=== PATIENT | male | born 1945 | race Caucasian/White ===

== ENCOUNTER 2018-09-13 18:41 | Inpatient (IN) | payer OTHER ==
[2018-09-13] MEDS ORDERED: THIAMINE 200 MG/2 ML INJ ONE (19:40)
[2018-09-13] MEDS ORDERED: ONDANSETRON 4 MG/2 ML VIAL ONE (19:40)
[2018-09-13] MEDS ORDERED: NA CHLORIDE 0.9% 2,000 ML ONE (19:40)
[2018-09-13 19:48] LABS: Absolute Lymphocytes (CBC) 0.4 K/uL (0.7-4.9); Absolute Monocytes 0.1 K/uL (0.1-1.3); Absolute Neutrophil 10.9 K/uL (1.8-8.0); Basophils % 0.2 % (0-1.3); Eosinophils % 0.1 % (0-4.4); Hematocrit 47.8 % (39.6-49.0); Lymphocytes % 3.7 % (15.3-44.8); MPV 10.1 fL (7.6-11.3); Monocytes % 0.9 % (3.3-12.3); RBC Red Blood Cell Count 5.19 M/uL (4.33-5.43)
--- NOTE | 2018-09-13 19:52 | RAD REPORT ---
EXAM DESCRIPTION: CT - Head Brain Wo Cont - 09/13/2018 7:40 pm CLINICAL HISTORY: Transient alteration of awareness COMPARISON: None. TECHNIQUE: Axial 5 mm thick images of the head were obtained without IV contrast. All CT scans are performed using dose optimization technique as appropriate and may include automated exposure control or mA/KV adjustment according to patient size. FINDINGS: No intracranial hemorrhage, mass, edema or shift of mid-line structures. No acute infarcti on changes seen. Moderate atrophy and chronic ischemic change. Ventricles are in proportion. Arterial and physiologic calcifications present. Mastoid air cells and visualized portions of the paranasal sinuses are clear. No acute bony findings. IMPRESSION: Moderate atrophy and chronic ischemic change. No acute findings seen. Chronic ischemic changes can mask nonhemorrhagic acute infarction. MR brain followup can be obtained if there is ongoing concern for acute ischemia.
--- NOTE | 2018-09-13 19:55 | RAD REPORT ---
EXAM DESCRIPTION: CT - Stone Protocol - 09/13/2018 7:44 pm CLINICAL HISTORY: Abdominal pain, fever COMPARISON: None. TECHNIQUE: Axial 5 mm thick images were obtained without oral or IV contrast. The [id number] span s the entirety of the system partially obscuring uppermost abdomen and lung bases. All CT scans are performed using dose optimization technique as appropriate and may include automated exposure control or mA/KV adjustment according to patient size. FINDINGS: No hydronephrosis is present and no obstructing ureteral calculi. No suspicious renal mass es. Isodense masses and pyelonephritis are not excluded on a stone protocol CT scan. No urinary bladd er wall thickening. Lobulated contour is seen along the trigone of the bladder. This could be prostat ic hypertrophy, prostate mass or even bladder mass. No significant adrenal finding. Imaged portions of the liver, spleen and pancreas show no suspicious findings on non-contrast imaging . Fatty infiltration of the liver is present. No gallbladder or biliary tree finding. Gallstones can be occult. Acute gallbladder process is not suspected. No suspicious bowel findings. Appendix is normal. No active GI process seen. Diverticulosis is minima l. No hernia, mass or bulky lymphadenopathy noted. No free air, free fluid or inflammatory stranding. No significant bony abnormality. IMPRESSION: No acute GI process identifiable. No free air or surgically emergent finding. No hydronephrosis or obstructing calculus. Isodense masses and pyelonephritis are not excluded. No ur inary bladder wall thickening. Approximately 2.5 centimeter mass density at the trigone of the bladder could be bladder mass, prosta te mass or part of prostatic hypertrophy.
[2018-09-13 19:57] LABS: Protime INR 1.15
[2018-09-13 20:17] LABS: Albumin 3.8 g/dL (3.4-5.0); Bilirubin Direct 0.5 mg/dL (0-0.2); Bilirubin Total 1.6 mg/dL (0.2-1.0); Magnesium 1.8 mg/dL (1.8-2.4); Potassium 3.5 mmol/L (3.5-5.1); Protein, Total 7.7 g/dL (6.4-8.2); Troponin (Emerg Dept Use Only) 0.33 ng/mL (0.0-0.045)
[2018-09-13 20:18] LABS: Blood Morphology Comment NOT SEEN (NOT SEEN); Platelet Estimate ADEQ; Urine White Blood Cell Casts OK
[2018-09-13] MEDS ORDERED: ACETAMINOPHEN 325 MG TABLET ONE (20:38)
[2018-09-13] MEDS ORDERED: CEFEPIME 1 GM/100 ML BAG IV ONE (20:38)
[2018-09-13 20:43] LABS: Urine Blood 1+ (NEG); Urine Glucose NEGATIVE (NEG); Urine Protein 2+ (NEG)
--- NOTE | 2018-09-13 21:05 | RAD REPORT ---
EXAM DESCRIPTION: RAD - Chest Single View - 09/13/2018 7:52 pm CLINICAL HISTORY: Cough and congestion COMPARISON: None. TECHNIQUE: AP portable chest image was obtained 1949 hours . FINDINGS: Lungs are clear. Heart and vasculature are normal. No measurable pleural effusion and no p neumothorax. No acute bony abnormality seen. No acute aortic findings suspected. IMPRESSION: No acute cardiopulmonary process.
--- NOTE | 2018-09-13 22:23 | ER ---
Nurse's Notes [facility] Name: Tejas Kulkarni Age: 72 yrs Sex: Male : 1945 Arrival Date: 09/13/2018 Time: 18:49 Bed 26 Private MD: Diagnosis: Tubulo-interstitial nephritis, not specified as acute or chronic;Severe sepsis without septic shock Presentation: 09/13 18:47 Presenting complaint: EMS states: called by pt's daughter who stated that the pt is sv disoriented. BP 150/108 HR-110 ST, BS-211, A\T\O x2 person/place, GCS-15. c/o dizziness and nausea. Denies chest pain/abd pain/headache. BP now 143/105 HR-110 92% RA O2 \T\ 2L per NC O2 sat up to 95%, Temp on arrival 103 and now is 101.9. EMS stated pt was diaphoretic on arrival and temperature in his house was hot. Transition of care: patient was not received from another setting of care. Onset of symptoms was September 13, 2018. Risk Assessment: Do you want to hurt yourself or someone else? Patient reports no desire to harm self or others. Initial Sepsis Screen: Does the patient meet any 2 criteria? Altered Mental Status. HR > 90 bpm. Yes Does the patient have a suspected source of infection? No. Patient's initial sepsis screen is negative. Care prior to arrival: IV initiated. 20 GA, in the left antecubital area, Glucose check: 211. 18:47 Method Of Arrival: EMS: [facility] sv 18:47 Acuity: REAGAN 2 sv Triage Assessment: 19:00 General: Appears in no apparent distress. comfortable, unkempt, well developed, sv Behavior is cooperative, restless. Pain: Denies pain. Neuro: Level of Consciousness is awake, alert, obeys commands, confused, Oriented to person, place, Moves all extremities. Full function Gait is unsteady. Neuro: Reports dizziness. Respiratory: Airway is patent Respiratory effort is even, unlabored, Respiratory pattern is regular, symmetrical. Derm: Skin is normal. Historical: - Allergies: 19:07 Iodine; sv 19:07 shrimp; sv - Home Meds: 19:14 Hydralazine Oral [Active]; Cyclobenzaprine Oral [Active]; meloxicam oral oral [Active]; sv atorvastatin oral oral [Active]; Glipizide Oral [Active]; valsartan oral oral [Active]; - PMHx: 19:07 Diabetes - NIDDM; Hypertension; sv - Immunization history:: Flu vaccine is not up to date. - Social history:: Smoking status: Patient/guardian denies using tobacco. - Ebola Screening: : No symptoms or risks identified at this time. Screenin:20 Abuse screen: Denies threats or abuse. Denies injuries from another. Nutritional ca1 screening: No deficits noted. Tuberculosis screening: No symptoms or risk factors identified. Fall Risk IV access (20 points). Assessment: 19:20 General: Appears in no apparent distress. comfortable, Behavior is calm, cooperative, ca1 appropriate for age. Pain: Denies pain. Neuro: Level of Consciousness is awake, alert, obeys commands, Oriented to person, place, situation, Roto [employer] Press Operator are equal bilaterally Moves all extremities. Gait is steady, Speech is normal, Facial symmetry appears normal, Pupils are PERRLA. Cardiovascular: Heart tones S1 S2 present Capillary refill < 3 seconds Patient's skin is warm and dry. Rhythm is sinus rhythm. Respiratory: Airway is patent Respiratory effort is even, unlabored, Respiratory pattern is regular, symmetrical, Breath sounds are clear bilaterally. GI: Abdomen is round non-distended, Bowel sounds present X 4 quads. Abd is soft and non tender X 4 quads. : Urine is cloudy. EENT: No deficits noted. No signs and/or symptoms were reported regarding the EENT system. Derm: Skin is intact, is healthy with good turgor, Skin is pink, warm \T\ dry. Musculoskeletal: Circulation, motion, and sensation intact. Capillary refill < 3 seconds. 20:25 Reassessment: Patient appears in no apparent distress at this time. Patient and/or ca1 family updated on plan of care and expected duration. Pain level reassessed. Patient is alert, oriented x 3, equal unlabored respirations, skin warm/dry/pink. Vital Signs: 19:00 BP 149 / 102; Pulse 113; Resp 18; Temp 100.8(O); Pulse Ox 96% on R/A; Pain 0/10; sv 20:22 Weight 93.89 kg (R); mg2 20:25 BP 121 / 88; Pulse 98; Resp 19 S; Pulse Ox 99% on R/A; ca1 20:25 Temp 99.4(O); jp3 22:05 Temp 98.7(O); jp3 ED Course: 18:47 Maintain EMS IV. Dressing intact. Site clean \T\ dry. Gauge \T\ site: 20G L AC. sv 18:49 Patient arrived in ED. em 18:50 Jelly Bingham, RN is Primary Nurse. sv 19:00 Arm band placed on. sv 19:00 Patient has correct armband on for positive identification. Bed in low position. Side sv rails up X2. monitoring engineer on. Pulse ox on. NIBP on. Head of bed elevated. 19:05 Report received from María SHARP and Sharyn RN. sv 19:06 Triage completed. sv 19:15 Yeison Morgan MD is Attending Physician. gs 19:21 Primary Nurse role handed off by Jelly Bingham RN sv 19:25 Initial lab(s) drawn, by tn, sent to lab. ca1 19:25 First set of blood cultures drawn by tn. ca1 19:34 Eli Smith, RN is Primary Nurse. ca1 19:40 CT Head Brain wo Cont In Process Unspecified. EDMS 19:40 Second set of blood cultures drawn by tn. ca1 19:43 CT Stone Protocol In Process Unspecified. EDMS 19:44 CT completed. Patient tolerated procedure well. Patient moved back from CT. mw3 19:53 XRAY Chest (1 view) In Process Unspecified. EDMS 20:19 Notified ED physician of a critical lab result(s). lactate of 3.1. Dr Morgan notified. bb 22:18 Urine Microscopic Only Sent. jp3 22:21 Corinne Baxter MD is Hospitalizing Provider. gs 23:10 No provider procedures requiring assistance completed. Patient admitted, IV remains in mg2 place. Administered Medications: 19:55 Drug: Thiamine 100 mg Route: IV; Rate: bolus; Site: left antecubital; mg2 20:55 Follow up: Response: No adverse reaction; IV Status: Completed infusion ca1 19:55 Drug: NS 0.9% 1000 ml Route: IV; Rate: 1 bolus; Site: left antecubital; mg2 23:09 Follow up: Response: No adverse reaction; IV Status: Completed infusion mg2 19:55 Drug: Zofran 4 mg Route: IVP; Site: left antecubital; mg2 20:50 Follow up: Response: No adverse reaction; Nausea is decreased ca1 20:35 Drug: NS 0.9% 1000 ml Route: IV; Rate: 1 bolus; Site: right antecubital; ca1 23:09 Follow up: Response: No adverse reaction; IV Status: Completed infusion mg2 20:39 Drug: Cefepime 1 grams Route: IVPB; Rate: 200 ml/hr; Infused Over: 30 mins; Site: left mg2 antecubital; 23:08 Follow up: Response: No adverse reaction; IV Status: Completed infusion mg2 23:08 Not Given (Physician Discretion): NS 0.9% 1000 ml IV at 125 ml/hr continuous mg2 23:09 Not Given (patient afebrile): Tylenol 650 mg PO once mg2 Intake: 22:00 IV: 2000ml; Total: 2000ml. jp3 22:00 bladder scan was performed after patient voided. Urine retention was 152ml jp3 Output: 22:00 Urine: 200ml (Voided); Total: 200ml. jp3 22:00 bladder scan was performed after patient voided. Urine retention was 152ml jp3 Outcome: 22:22 Decision to Hospitalize by Provider. 23:11 Admitted to Tele accompanied by tech, via wheelchair, room 415, with chart, Report mg2 called to LILA Kurtz 23:11 Condition: stable 23:11 Instructed on the need for admit, Demonstrated understanding of instructions. 23:18 Patient left the ED. mg2 Signatures: Dispatcher [employer] Jelly Simpson RN RN Pernell Moss, DIAPER FOLDER DIAPER FOLDER Vero Starr RN RN bb Starr, Gregory, MD MD Alon Alarcon RN RN mg2 Cori Carter 3 Marc Del Rosario jp3 Eli Smith RN RN ca1 Corrections: (The following items were deleted from the chart) 20:23 20:22 93.89 kg; mg2 mg2 22:18 20:25 Temp 99.4F; mg2 jp3
--- NOTE | 2018-09-13 22:23 | EDPHYS ---
Physician Documentation [facility] Name: Tejas Kulkarni Age: 72 yrs Sex: Male : 1945 Arrival Date: 09/13/2018 Time: 18:49 Bed 26 Private MD: ED Physician Yeison Morgan HPI: 09/13 22:15 This 72 yrs old Male presents to ER via EMS with complaints of Dizziness, gs Altered Mental Status. 22:15 Onset: The symptoms/episode began/occurred acutely, this morning. Modifying factors: gs there are no obvious modifying factors. Associated signs and symptoms: Pertinent positives: altered mental status,\E\ backache, chills, decreased appetite. Severity of symptoms: At their worst the symptoms were severe in the emergency department the symptoms are unchanged. The patient has not experienced similar symptoms in the past. Historical: - Allergies: 19:07 Iodine; sv 19:07 shrimp; sv - Home Meds: 19:14 Hydralazine Oral [Active]; Cyclobenzaprine Oral [Active]; meloxicam oral oral [Active]; sv atorvastatin oral oral [Active]; Glipizide Oral [Active]; valsartan oral oral [Active]; - PMHx: 19:07 Diabetes - NIDDM; Hypertension; sv - Immunization history:: Flu vaccine is not up to date. - Social history:: Smoking status: Patient/guardian denies using tobacco. - Ebola Screening: : No symptoms or risks identified at this time. ROS: 22:15 All other systems are negative. gs Exam: 22:15 Head/Face: Normocephalic, atraumatic. Eyes: Pupils equal round and reactive to light, gs extra-ocular motions intact. Lids and lashes normal. Conjunctiva and sclera are non-icteric and not injected. Cornea within normal limits. Periorbital areas with no swelling, redness, or edema. ENT: Nares patent. No nasal discharge, no septal abnormalities noted. Tympanic membranes are normal and external auditory canals are clear. Oropharynx with no redness, swelling, or masses, exudates, or evidence of obstruction, uvula midline. Mucous membranes moist. Neck: Trachea midline, no thyromegaly or masses palpated, and no cervical lymphadenopathy. Supple, full range of motion without nuchal rigidity, or vertebral point tenderness. No Meningismus. Chest/axilla: Normal chest wall appearance and motion. Nontender with no deformity. No lesions are appreciated. 22:15 Respiratory: Lungs have equal breath sounds bilaterally, clear to auscultation and percussion. No rales, rhonchi or wheezes noted. No increased work of breathing, no retractions or nasal flaring. Back: No spinal tenderness. No costovertebral tenderness. Full range of motion. Skin: Warm, dry with normal turgor. Normal color with no rashes, no lesions, and no evidence of cellulitis. MS/ Extremity: Pulses equal, no cyanosis. Neurovascular intact. Full, normal range of motion. 22:15 Constitutional: The patient appears awake. 22:15 Cardiovascular: Rate: tachycardic, Rhythm: regular, Pulses: no pulse deficits are appreciated. 22:15 Abdomen/GI: Inspection: abdomen appears normal, Palpation: moderate abdominal tenderness, in all quadrants, rebound tenderness, is not appreciated. 22:15 Neuro: Orientation: Not oriented to place, time, situation. Vital Signs: 19:00 BP 149 / 102; Pulse 113; Resp 18; Temp 100.8(O); Pulse Ox 96% on R/A; Pain 0/10; sv 20:22 Weight 93.89 kg (R); mg2 20:25 BP 121 / 88; Pulse 98; Resp 19 S; Pulse Ox 99% on R/A; ca1 20:25 Temp 99.4(O); jp3 22:05 Temp 98.7(O); jp3 MDM: 19:15 Patient medically screened. gs 22:15 Differential diagnosis: viral Infection, bacterial infection, pneumonia UTI. Data gs reviewed: vital signs, nurses notes, lab test result(s), EKG, radiologic studies. Response to treatment: the patient's symptoms have markedly improved after treatment, and as a result, I will admit patient. 09/13 19:03 Order name: Basic Metabolic Panel [facility] 09/13 19: Order name: CBC with Diff [facility] 09/13 19:03 Order name: LFT's [facility] 09/13 19: Order name: Magnesium; Complete Time: 20:19 [facility] 09/13 19:03 Order name: NT PRO-BNP; Complete Time: 20:19 [facility] 09/13 19:03 Order name: PT-INR; Complete Time: 20:19 [facility] 04 19:03 Order name: Troponin (emerg Dept Use Only); Complete Time: 20:19 [facility] 09/13 19:03 Order name: Lipase; Complete Time: 20:19 [facility] 09/13 19:03 Order name: Urine Culture [facility] 09/13 19:03 Order name: AMMONIA; Complete Time: 20:19 [facility] 09/13 19:04 Order name: Basic Metabolic Panel; Complete Time: 20:19 [facility] 09/13 19:04 Order name: CBC with Automated Diff; Complete Time: 20:19 [facility] 09/13 19:04 Order name: Liver (Hepatic) Function; Complete Time: 20:19 [facility] 09/13 19:17 Order name: Blood Culture* 09/13 19:03 Order name: XRAY Chest (1 view); Complete Time: 21:08 [facility] 09/13 19:03 Order name: CT Head Brain wo Cont; Complete Time: 20:19 [facility] 09/13 19:17 Order name: Lactate; Complete Time: 21:08 09/13 19:17 Order name: Procalcitonin; Complete Time: 21:08 09/13 19:19 Order name: CT Stone Protocol; Complete Time: 20:19 09/13 19:56 Order name: CBC Smear Scan; Complete Time: 20:19 [facility] 09/13 19:57 Order name: Urine Dipstick--Ancillary (enter results); Complete Time: 21:08 cm6 09/13 19:58 Order name: Urine Microscopic Only 6 09/13 20:05 Order name: Glucose, Ancillary Testing; Complete Time: 20:19 [facility] 09/13 22:14 Order name: Lactate 09/13 23:10 Order name: Lactate Sepsis 2 HR Follow-up [facility] 09/13 19:03 Order name: EKG; Complete Time: 19:04 [facility] 09/13 19:03 Order name: Cardiac monitoring; Complete Time: 19:31 [facility] 09/13 19:03 Order name: EKG - Nurse/Tech; Complete Time: 20:23 [facility] 09/13 19:03 Order name: IV Saline Lock; Complete Time: 19:31 [facility] 09/13 19:03 Order name: Labs collected and sent; Complete Time: 19:31 [facility] 09/13 19:03 Order name: O2 Per Protocol; Complete Time: 19:31 [facility] 09/13 19:03 Order name: O2 Sat Monitoring; Complete Time: 19: [facility] 09/13 19:03 Order name: Urine Dipstick-Ancillary (obtain specimen); Complete Time: 20: [facility] 09/13 19:03 Order name: Blood Glucose Level; Complete Time: 20:05 [facility] Administered Medications: 19:55 Drug: Thiamine 100 mg Route: IV; Rate: bolus; Site: left antecubital; mg2 20:55 Follow up: Response: No adverse reaction; IV Status: Completed infusion ca1 19:55 Drug: NS 0.9% 1000 ml Route: IV; Rate: 1 bolus; Site: left antecubital; mg2 23:09 Follow up: Response: No adverse reaction; IV Status: Completed infusion mg2 19:55 Drug: Zofran 4 mg Route: IVP; Site: left antecubital; mg2 20:50 Follow up: Response: No adverse reaction; Nausea is decreased ca1 20:35 Drug: NS 0.9% 1000 ml Route: IV; Rate: 1 bolus; Site: right antecubital; ca1 23:09 Follow up: Response: No adverse reaction; IV Status: Completed infusion mg2 20:39 Drug: Cefepime 1 grams Route: IVPB; Rate: 200 ml/hr; Infused Over: 30 mins; Site: left mg2 antecubital; 23:08 Follow up: Response: No adverse reaction; IV Status: Completed infusion mg2 23:08 Not Given (Physician Discretion): NS 0.9% 1000 ml IV at 125 ml/hr continuous mg2 23:09 Not Given (patient afebrile): Tylenol 650 mg PO once mg2 Disposition: 09/13/18 22:22 Hospitalization ordered by Corinne Baxter for Inpatient Admission. Preliminary diagnosis are Tubulo-interstitial nephritis, not specified as acute or chronic, Severe sepsis without septic shock. - Bed requested for Telemetry/MedSurg (Inpatient). - Status is Inpatient Admission. mg2 - Condition is Stable. - Problem is new. - Symptoms have improved. UTI on Admission? Yes Critical care time excluding procedures: 22:15 Critical care time: Bedside Care: 10 minutes, Consultation: 10 minutes, Family gs Intervention: 10 minutes. Total time: 30 minutes Signatures: Dispatcher [employer] Jelly Simpson RN RN sv Anderson, Corey, MD MD cha Garcia, Cindy, RN RN Yeison Morgan MD MD Alon Alarcon RN RN mg2 Eli Smith RN RN ca1 Corrections: (The following items were deleted from the chart) 22:42 22:22 Hospitalization Ordered by Corinne Baxter MD for Inpatient Admission. Preliminary cg diagnosis is Tubulo-interstitial nephritis, not specified as acute or chronic; Severe sepsis without septic shock. Bed requested for Telemetry/MedSurg (Inpatient). Status is Inpatient Admission. Condition is Stable. Problem is new. Symptoms have improved. UTI on Admission? Yes. 23:18 22:42 09/13/2018 22:22 Hospitalization Ordered by Corinne Baxter MD for Inpatient mg2 Admission. Preliminary diagnosis is Tubulo-interstitial nephritis, not specified as acute or chronic; Severe sepsis without septic shock. Bed requested for Telemetry/MedSurg (Inpatient). Status is Inpatient Admission. Condition is Stable. Problem is new. Symptoms have improved. UTI on Admission? Yes.
[2018-09-13 23:28] LABS: Urine Bacteria >50 /HPF (NONE SEEN); Urine Culture Reflex Order NOT NEEDED; Urine RBC <5 /HPF (NONE SEEN)
[2018-09-13] MEDS ORDERED: ONDANSETRON 4 MG/2 ML VIAL IV PRN (23:29)
[2018-09-13] MEDS ORDERED: NA CHLORIDE 0.9% 1,000 ML IV SCH (23:29)
--- NOTE | 2018-09-14 04:50 | P.HP ---
Certification for Inpatient Patient admitted to: Inpatient With expected LOS: >2 Midnights Practitioner: I am a practitioner with admitting privileges, knowledge of patient current condition, hospital course, and medical plan of care. Services: Services provided to patient in accordance with Admission requirements found in Title 42 Section 412.3 of the Code of Federal Regulations Patient History Date of Service: 09/13/18 Reason for admission: sepsis, UTI History of Present Illness: Mr Kulkarni is a 89 years old male with history of DM II, HTN, who start a couple of days ago with urinary retention. He states that is not the first time , and he usually do well drinking Apple cyder vinegar. However, his symptoms did not improve. Today the patient was more confused and disoriented. His BP was elevated. EMS was called, when they arrive, the patient was febrile 103.0F, and diaphoretic. At arrival to ED he was still febrile 100.8F. After, fever resolved, his mentation came back to his normal baseline. Lab work remarkable for leukocytosis 11.5K, elevated procalcitonin and lactate. UA abnormal consistent with UTI. CT abd/pelvis shows no acute abnormalities, but was reported an approximately 2.5 centimeter mass density at the trigone of the bladder, could be bladder mass, prostate mass or part of prostatic hypertrophy. Allergies iodine Allergy (Verified 09/13/18 23:54) Rash shrimp Allergy (Verified 09/13/18 23:54) Hives/Rash Home medications list reviewed: Yes Home Medications: NK [No Home Meds] 09/13/18 - Past Medical/Surgical History Has patient received pneumonia vaccine in the past: No Diabetic: Yes -: diabetes -: hypertension Past Surgical History: Reviewed- Non-Contributory - Family History Father -: Lung disease, Cancer - Social History Smoking Status: Former smoker Alcohol use: No CD- Drugs: No Caffeine use: No Place of Residence: Home Review of Systems 10-point ROS is otherwise unremarkable Physical Examination - Vital Signs Temperature: 99.8 F Blood Pressure: 116/65 Pulse: 81 Respirations: 16 Pulse Ox (%): 97 - Physical Exam General: Alert, In no apparent distress HEENT: Atraumatic, PERRLA, Mucous membr. moist/pink, EOMI, Sclerae nonicteric Neck: Supple, 2+ carotid pulse no bruit, No LAD, Without JVD or thyroid abnormality Respiratory: Clear to auscultation bilaterally, Normal air movement Cardiovascular: Regular rate/rhythm, Normal S1 S2 Gastrointestinal: Normal bowel sounds, No tenderness Musculoskeletal: No tenderness Integumentary: No rashes Neurological: Normal speech, Normal strength at 5/5 x4 extr, Normal tone, Normal affect Lymphatics: No axilla or inguinal lymphadenopathy - Studies Laboratory Data (last 24 hrs) 09/13/18 19:25: PT 13.5 H, INR 1.15 09/13/18 19:25: WBC 11.5 H, Hgb 16.5, Hct 47.8, Plt Count 206 09/13/18 19:25: Sodium 135 L, Potassium 3.5, BUN 14, Creatinine 1.27, Glucose 185 H, Magnesium 1.8, Total Bilirubin 1.6 H, AST 22, ALT 47, Alkaline Phosphatase 105, Lipase 88 Assessment and Plan - Problems (Diagnosis) (1) Sepsis Current Visit: Yes Status: Acute Qualifiers: Sepsis type: sepsis due to unspecified organism Qualified Code(s): A41.9 - Sepsis, unspecified organism (2) UTI (urinary tract infection) Current Visit: Yes Status: Acute Qualifiers: Urinary tract infection type: acute cystitis Hematuria presence: without hematuria Qualified Code(s): N30.00 - Acute cystitis without hematuria (3) Diabetes mellitus Current Visit: Yes Status: Acute Qualifiers: Diabetes mellitus type: type 2 Diabetes mellitus longterm insulin use: without longterm use Diabetes mellitus complication status: with unspecified complications Qualified Code(s): E11.8 - Type 2 diabetes mellitus with unspecified complications (4) HTN (hypertension) Current Visit: Yes Status: Acute Qualifiers: Hypertension type: essential hypertension Qualified Code(s): I10 - Essential (primary) hypertension - Plan Will admit the patient due to sepsis secondary to UTI. Will continue IV fluids, IV antibiotics, blood and urine culture in process. The patient feels better already, he is hemodynamically stable. Will consult Dr Diaz to evaluate bladder mass, this might play a roll on his current illness. - Advance Directives Does patient have a Living Will: No Does patient have a Durable POA for Healthcare: No - Code Status/Comfort Care Code Status Assessed: Yes Code Status: Full Code
[2018-09-14] MEDS: ACETAMINOPHEN 500 MG TAB PO PRN ×4 (05:11→22:13)
[2018-09-14 06:19] LABS: Absolute Lymphocytes (CBC) 0.3 K/uL (0.7-4.9); Absolute Monocytes 0.8 K/uL (0.1-1.3); Absolute Neutrophil 12.7 K/uL (1.8-8.0); Basophils % 0.3 % (0-1.3); Eosinophils % 0.1 % (0-4.4); Hematocrit 40.5 % (39.6-49.0); Lymphocytes % 2.3 % (15.3-44.8); Monocytes % 5.7 % (3.3-12.3)
[2018-09-14] MEDS ORDERED: D50W 25 GM/50 ML SYRINGE IV PRN (07:30)
[2018-09-14] MEDS ORDERED: GLUCAGON 1 MG/VIAL IM PRN (07:30)
[2018-09-14] MEDS: INSULIN -REGULAR HUMAN 50 UNIT/0.5 ML ML SQ SCH ×4 (07:30→21:00)
--- NOTE | 2018-09-14 08:14 | P.PN ---
Subjective Date of Service: 09/14/18 Primary Care Provider: [place] [facility] Chief Complaint: sepsis, UTI Subjective: Other (Patient doing better this morning. T-max 101.7) Physical Examination - Vital Signs Temperature: 101.4 F Blood Pressure: 108/55 Pulse: 84 Respirations: 16 Pulse Ox (%): 95 - Physical Exam General: Alert, In no apparent distress, Oriented x3, Cooperative HEENT: Atraumatic Neck: Supple Respiratory: Clear to auscultation bilaterally, Normal air movement Cardiovascular: Normal pulses, Regular rate/rhythm Gastrointestinal: Normal bowel sounds, Soft and benign, Non-distended, No tenderness, No masses, No rebound, No guarding Musculoskeletal: No erythema, No tenderness, No warmth Neurological: Normal speech, Normal strength at 5/5 x4 extr, Normal tone, Normal affect - Studies Laboratory Data (last 24 hrs) 09/13/18 19:25: PT 13.5 H, INR 1.15 09/13/18 19:25: WBC 11.5 H, Hgb 16.5, Hct 47.8, Plt Count 206 09/13/18 19:25: Sodium 135 L, Potassium 3.5, BUN 14, Creatinine 1.27, Glucose 185 H, Magnesium 1.8, Total Bilirubin 1.6 H, AST 22, ALT 47, Alkaline Phosphatase 105, Lipase 88 Medications List Reviewed: Yes Assessment & Plan Discharge Plan: Home Plan to discharge in: Greater than 2 days Physician Review Additional Text: Impression: Sepsis secondary to UTI with reports of her you nerve retention, with CT scan showing 2.5 cm mass density at the trigone of the bladder likely BPH Acute renal injury secondary to Dehydration Elevated troponin likely related to sepsis Diabetes mellitus type 2 Hypertension Obesity, BMI 31 Plan: Sepsis secondary to UTI with reports of urinary retention, with CT scan showing 2.5 cm mass density at the trigone of the bladder likely BPH: Will continue with IV Rocephin. Will increase IV fluids. Patient able to urinate on his own. No Tapia catheter in place. Will provide medication for fever. Patient remains on DVT prophylaxis-Lovenox. Urology suspects density likely BPH. No need for intervention at this time. Will need to monitor for urinary retention. Will start Flomax at bedtime. Continue to monitor closely. Blood and urine cultures obtained. Anticipate discharge in the next 48-72 hr. I will turn the service over tomorrow to the hospitalist team. I will go over the plan of care with him. Acute renal injury secondary to Dehydration: Continue aggressive IV fluid hydration. Will increase IV fluids. Will monitor and adjust appropriately. Elevated troponin likely related to sepsis: Will recheck troponin. Will obtain echocardiogram. Will monitor closely. Will start aspirin. Diabetes mellitus type 2: Continue Accu-Cheks and sliding scale. Will check A1c. Hypertension: Will need to obtain home medication. No need for medication at this time. Will monitor closely. Obesity, BMI 31: Will address lifestyle modification education. Time Spent Managing Pts Care (In Minutes): 55
[2018-09-14] MEDS ORDERED: CEFTRIAXONE 1 GM/NS 50 ML 1 GM/50 ML BAG IV SCH (09:00)
[2018-09-14] MEDS ORDERED: MAGNESIUM SULFATE 1 gm IVPB 1 GM/100 ML BAG IV ONE (09:00)
[2018-09-14] MEDS: CEFTRIAXONE/SWI 1gm 1 GM/10 ML SYR IVP SCH (09:00)
[2018-09-14] MEDS: FAMOTIDINE 20 MG TAB PO SCH (09:05)
[2018-09-14] MEDS: ASPIRIN EC 81 MG TAB PO SCH (09:05)
[2018-09-14] MEDS: ENOXAPARIN 40 MG/0.4 ML SQ SCH (09:10)
[2018-09-14] MEDS: NA CHLORIDE 0.9% 1,000 ML IV SCH ×2 (09:12→16:38)
[2018-09-14] MEDS: CETIRIZINE HCL 5 MG TABLET PO SCH (14:05)
[2018-09-14] MEDS: FLUTICASONE 50MCG NASAL SPRAY NAS SCH ×2 (15:00→20:45)
--- NOTE | 2018-09-14 16:49 | CON ---
Mr. Kulkarni has been aware he has had a urinary tract infection. He tried to treat it by taking juic es and supplements and drinking lots of water. He thought it went away and his daughter noticed he w as confused, almost incoherent. His son-in-law dropped by took his blood pressure and noted his bloo d pressure is elevated. They called an ambulance. He has been found to have urinary tract septicemi a. His urine is growing gram-negative rods and he has an elevated procalcitonin. In addition to tho se 2 things, troponin levels were drawn. The patient has an EKG that is normal except for having 1 p remature atrial complex and nothing on telemetry, was not having chest pain or anything that could be remotely ischemic heart disease that he had troponins drawn and they were abnormal. Firs t troponin was 0.33, the second one 0.94. Physical Examination: General: He is alert, oriented, no longer confused, a little bit angry. He was saying some mildly d erogatory things about medicines that other doctors had prescribed him and seemed to be saying he had made his other doctors angry by not taking medicines they had prescribed. He gets most of his care at the [facility]. Uses no tobacco. Lungs: Clear. Heart: Normal. Abdomen: Soft. Extremities: Normal. EKG normal except for PAC. We have abnormal troponin. The right thing to do is get an echo. We do not see anything wrong with segmental wall motion. No EKG changes. No chest pain. We can assume this is not an acute coronary syndrome. TESSA Voice ID: [id number] Report ID: [id number]
[2018-09-14] MEDS ORDERED: TAMSULOSIN 0.4 MG SR CAP PO SCH (21:00)
[2018-09-15] MEDS: NA CHLORIDE 0.9% 1,000 ML IV SCH ×2 (00:36→08:51)
[2018-09-15 06:33] LABS: Magnesium 2.2 mg/dL (1.8-2.4); Potassium 4.2 mmol/L (3.5-5.1)
[2018-09-15 06:59] LABS: Absolute Lymphocytes (CBC) 0.5 K/uL (0.7-4.9); Absolute Monocytes 0.5 K/uL (0.1-1.3); Absolute Neutrophil 7.3 K/uL (1.8-8.0); Basophils % 0.3 % (0-1.3); Lymphocytes % 6.1 % (15.3-44.8); MPV 10.6 fL (7.6-11.3); Monocytes % 6.1 % (3.3-12.3); RBC Red Blood Cell Count 4.18 M/uL (4.33-5.43)
[2018-09-15] MEDS: INSULIN -REGULAR HUMAN 50 UNIT/0.5 ML ML SQ SCH ×2 (07:30→11:30)
[2018-09-15] MEDS: CETIRIZINE HCL 5 MG TABLET PO SCH (08:16)
[2018-09-15] MEDS: FAMOTIDINE 20 MG TAB PO SCH (08:16)
[2018-09-15] MEDS: ENOXAPARIN 40 MG/0.4 ML SQ SCH (08:16)
[2018-09-15] MEDS: FLUTICASONE 50MCG NASAL SPRAY NAS SCH (08:16)
[2018-09-15] MEDS: ASPIRIN EC 81 MG TAB PO SCH (08:16)
[2018-09-15] MEDS: CEFTRIAXONE/SWI 1gm 1 GM/10 ML SYR IVP SCH (08:17)
--- NOTE | 2018-09-15 12:36 | PN ---
He remains asymptomatic with respect to his heart. His septicemia is markedly improved with antibiot ics. An echo today will be a decision point in helping us decide how much of the workup to do. If i t is completely normal, I would stop the workup there. If there is a segmental wall motion abnormali ty, I will discuss with him the need for cardiac cath. TESSA Voice ID: [id number] Report ID: [id number]
--- NOTE | 2018-09-15 16:14 | ECHO ---
HEIGHT: 5 ft 8 in WEIGHT: 204 lb 0 oz DATE OF STUDY: 09/15/[address]: Venkatesh Barker DO 2-DIMENSIONAL: YES M.MODE: YES DOPPLER: YES COLOR FLOW: YES TDS: PORTABLE: DEFINITY: BUBBLE STUDY: DIAGNOSIS: ELEVATED TROPONIN CARDIAC HISTORY: CATHERIZATION: NO SURGERY: NO PROSTHETIC VALVE: NO PACEMAKER: NO MEASUREMENTS (cm) DIASTOLIC (NORMALS) SYSTOLIC (NORMALS) IVSd 1.3 (0.6-1.2) LA Diam 3.4 (1.9-4.0) LVEF 77% LVIDd 4.0 (3.5-5.7) LVIDs 2.2 (2.0-3.5) %FS 45% LVPWd 1.3 (0.6-1.2) Ao Diam 2.3 (2.0-3.7) 2 DIMENSIONAL ASSESSMENT: RIGHT ATRIUM: NORMAL LEFT ATRIUM: DILATED RIGHT VENTRICLE: NORMAL LEFT VENTRICLE: LEFT VENTRICULAR HYPERTROPHY TRICUSPID VALVE: NORMAL MITRAL VALVE: NORMAL PULMONIC VALVE: NORMAL AORTIC VALVE: NORMAL PERICARDIAL EFFUSION: NONE AORTIC ROOT: NORMAL LEFT VENTRICULAR WALL MOTION: NORMAL DOPPLER/COLOR FLOW: MILD MITRAL REGURGITATION AND TRICUSPID REGURGITATION. NORMAL RIGHT VENTRICULAR SYSTOLIC PRESSURE. COMMENTS: NORMAL LEFT VENTRICULAR EJECTION FRACTION. DILATED LEFT ATRIUM. LEFT VENTRICULAR HYPERTROPHY. MILD MITRAL REGURGITATION AND TRICUSPID REGURGITATION. TECHNOLOGIST: LAURA SHELLEY
--- NOTE | 2018-09-15 17:37 | P.DS ---
Admission Date: 09/13/18 Discharge Date: 09/15/18 Primary Care Provider: [place] [facility] Disposition: ROUTINE DISCHARGE Discharge Condition: GOOD Reason for Admission: sepsis, UTI Consultations: Dr Diaz - Problems (1) Sepsis Status: Acute Qualifiers: Sepsis type: sepsis due to unspecified organism Qualified Code(s): A41.9 - Sepsis, unspecified organism (2) UTI (urinary tract infection) Status: Acute Qualifiers: Urinary tract infection type: acute cystitis Hematuria presence: without hematuria Qualified Code(s): N30.00 - Acute cystitis without hematuria (3) Bladder mass Status: Acute (4) Diabetes mellitus Status: Chronic Qualifiers: Diabetes mellitus type: type 2 Diabetes mellitus laborer marine terminal insulin use: without laborer marine terminal use Diabetes mellitus complication status: with unspecified complications Qualified Code(s): E11.8 - Type 2 diabetes mellitus with unspecified complications (5) HTN (hypertension) Status: Chronic Qualifiers: Hypertension type: essential hypertension Qualified Code(s): I10 - Essential (primary) hypertension Brief History of Present Illness: Mr Kulkarni is a 89 years old male with history of DM II, HTN, who start a couple of days ago with urinary retention. He states that is not the first time , and he usually do well drinking Apple cyder vinegar. However, his symptoms did not improve. Today the patient was more confused and disoriented. His BP was elevated. EMS was called, when they arrive, the patient was febrile 103.0F, and diaphoretic. At arrival to ED he was still febrile 100.8F. After, fever resolved, his mentation came back to his normal baseline. Lab work remarkable for leukocytosis 11.5K, elevated procalcitonin and lactate. UA abnormal consistent with UTI. CT abd/pelvis shows no acute abnormalities, but was reported an approximately 2.5 centimeter mass density at the trigone of the bladder, could be bladder mass, prostate mass or part of prostatic hypertrophy. Hospital Course: Overall during the hospital stay patient remained stable Patient was initially admitted to the hospital for sepsis secondary to urinary tract infection. Patient was started on broad-spectrum antibiotics and cultures were collected. Patient had blood culture and urine culture collected here in the hospital. Patient also had an abdominal CT done which was consistent with bladder mass along with possible prostate mass as well. Urology was also consulted here in the hospital. Patient did not have any episode of hematuria here or at home. Patient had marked improvement in his symptoms after broad-spectrum antibiotics. Urine cultures came back for positive Klebsiella which was pansensitive. At that time patient was switched over to oral Augmentin. The urology was contacted who recommended that patient can follow up outpatient with urology for further workup of his bladder mass. During the hospitalization an attempt was also made to transfer the patient to the [facility] as patient does have [place] insurance however due to no beds at [facility] patient was unable to be transferred. Patient was cared for here in the hospital by the hospitalist. Patient 1 had marked improvement in his symptoms his white count was trending down along with symptoms were improving patient was discharged home under stable condition. Patient was given a prescription for Augmentin to be taken for total of 7 days and was asked to follow up with urology in about 1-2 days post discharge to follow up with his bladder mass. Patient demonstrate understanding and thus was discharged home under stable condition Vital Signs/Physical Exam: Temp Pulse Resp BP Pulse Ox 100.3 F 87 18 138/63 96 09/15/18 12:00 09/15/18 12:00 09/15/18 12:00 09/15/18 12:00 09/15/18 12:00 General: Alert, In no apparent distress HEENT: Atraumatic, PERRLA, EOMI Neck: Supple, JVD not distended Respiratory: Clear to auscultation bilaterally, Normal air movement Cardiovascular: Regular rate/rhythm, Normal S1 S2 Gastrointestinal: Normal bowel sounds, No tenderness Musculoskeletal: No tenderness Integumentary: No rashes Neurological: Normal speech, Normal tone, Normal affect Lymphatics: No axilla or inguinal lymphadenopathy Laboratory Data at Discharge: WBC 8.3 K/uL (4.3-10.9) D 09/15/18 06:44 Hgb 13.7 g/dL (13.6-17.9) 09/15/18 06:44 Hct 39.0 % (39.6-49.0) L 09/15/18 06:44 Plt Count 135 K/uL (152-406) L 09/15/18 06:44 PT 13.5 SECONDS (9.5-12.5) H 09/13/18 19:25 INR 1.15 09/13/18 19:25 Sodium 141 mmol/L (136-145) 09/15/18 05:45 Potassium 4.2 mmol/L (3.5-5.1) 09/15/18 05:45 BUN 15 mg/dL (7-18) 09/15/18 05:45 Creatinine 1.09 mg/dL (0.55-1.3) 09/15/18 05:45 Glucose 133 mg/dL (74-106) H 09/15/18 05:45 Magnesium 2.2 mg/dL (1.8-2.4) 09/15/18 05:45 Total Bilirubin 1.6 mg/dL (0.2-1.0) H 09/13/18 19:25 AST 22 U/L (15-37) 09/13/18 19:25 ALT 47 U/L (12-78) 09/13/18 19:25 Alkaline Phosphatase 105 U/L (45-117) 09/13/18 19:25 Troponin I 0.94 ng/mL (0.0-0.045) H* 09/14/18 08:36 Lipase 88 U/L (73-393) 09/13/18 19:25 Home Medications: Amox/Clavulanate [Augmentin 875-125 Tab] 1 each PO BID #14 tab 09/15/18 New Medications: Amox/Clavulanate [Augmentin 875-125 Tab] 1 each PO BID #14 tab Patient Discharge Instructions: Please f.u with Dr Diaz in 1 to 2 days post discharge for Bladder and prostate Mass. Please f.u with PCP in 1 to 2 weeks post discharge. New medication. Augmentin 1 pill BID for 7 days Diet: Regular Activity: Ad patrice Followup: Lola Diaz MD [ACTIVE - CAN ADMIT] -
--- NOTE | 2018-09-16 11:31 | EKG ---
Test Date: 2018-09-13 Test Time: 20:10:43 Press Washer: DAYNA MEASUREMENT RESULTS: Intervals: Rate: 97 IA: 146 QRSD: 94 QT: 338 QTc: 429 [place]: P: -7 IA: 146 QRS: -44 T: 70 INTERPRETIVE STATEMENTS: Sinus rhythm with premature atrial complexes Left axis deviation Abnormal ECG No previous ECG available for comparison Electronically Signed On 09-14-18 10:48:54 CDT by Sharad Bean
--- NOTE | 2018-09-16 11:37 | EKG ---
Test Date: 2018-09-14 Test Time: 10:14:12 Engineering Writer: MANUEL MEASUREMENT RESULTS: Intervals: Rate: 92 AZ: 148 QRSD: 92 QT: 318 QTc: 393 [place]: P: -4 [place]: 148 QRS: -55 T: 78 INTERPRETIVE STATEMENTS: Normal sinus rhythm Left axis deviation Inferior infarct, age undetermined Abnormal ECG Compared to ECG 09/13/2018 20:10:43 Myocardial infarct finding now present Atrial premature complex(es) no longer present Electronically Signed On 09-15-18 10:52:36 CDT by Sharad Bean
== END 2018-09-15 15:34 | disposition home or self-care (01) | DRG 872 ==
LOC: ER 18:41 → ERHOLD 21:53 → 4TH 23:05
PROVIDERS: ADMIT Internal Medicine; ATTEND Family Medicine
DX: A41.9 Sepsis, unspecified organism (principal); N30.00 Acute cystitis without hematuria; N17.9 Acute kidney failure, unspecified; N32.9 Bladder disorder, unspecified; E11.9 Type 2 diabetes mellitus without complications; R33.9 Retention of urine, unspecified; B96.1 Klebsiella pneumoniae [K. pneumoniae] as the cause of diseases classified elsewhere; E86.0 Dehydration; I10 Essential (primary) hypertension; E66.9 Obesity, unspecified; Z68.31 Body mass index [BMI] 31.0-31.9, adult; Z87.891 Personal history of nicotine dependence; Z79.84 Long term (current) use of oral hypoglycemic drugs
CPT/HCPCS: 36415; 70450; 71045; 74176; 76377; 80048; 80076; 81003; 81015; 82140; 82962; 83036; 83605; 83690; 83735; 83880; 84145; 84484; 85025; 85610; 87040; 87077; 87086; 87088; 87186; 87205; 93005; 93306; 96365; 96366; 96375; 99285; J0692; J0696; J1650; J2405; J3411; J3475; J7030

== ENCOUNTER 2018-11-25 09:56 | Day surgery (SDC) | payer OTHER ==
[2018-11-13 11:54] LABS: Absolute Lymphocytes (CBC) 1.2 K/uL (0.7-4.9); Basophils % 0.8 % (0-1.3); Eosinophils % 1.3 % (0-4.4); Hematocrit 45.9 % (39.6-49.0); Lymphocytes % 15.8 % (15.3-44.8); MPV 9.8 fL (7.6-11.3); Monocytes % 6.5 % (3.3-12.3); RBC Red Blood Cell Count 4.96 M/uL (4.33-5.43)
--- NOTE | 2018-11-13 11:54 | RAD REPORT ---
EXAM DESCRIPTION: RAD - Chest Pa And Lat (2 Views) - 11/13/2018 11:43 am CLINICAL HISTORY: Preop for surgery Chest pain. COMPARISON: Chest Single View dated 09/13/2018Chest Single View dated 09/13/2018 FINDINGS: The lungs are clear. The heart is normal in size. No displaced fractures. IMPRESSION: No acute or concerning finding suspected.
[2018-11-13 12:04] LABS: Protime INR 0.95
[2018-11-13 12:18] LABS: Urine Appearance CLEAR; Urine Bilirubin NEGATIVE (NEG); Urine Blood NEGATIVE (NEG); Urine Color YELLOW; Urine Glucose NEGATIVE (NEG); Urine Microscopic Reflex NO UMIC; Urine Protein NEGATIVE (NEG); Urine Urobilinogen 0.2 mg/dL (0.2-1.0); Urine pH 5.5 (5.0-7.0)
--- NOTE | 2018-11-14 07:20 | EKG ---
Test Date: 2018-11-13 Test Time: 11:52:36 Landscape Painter: JUSTYN MEASUREMENT RESULTS: Intervals: Rate: 67 AZ: 160 QRSD: 84 QT: 398 QTc: 420 [place]: P: 11 [place]: 160 QRS: -29 T: 79 INTERPRETIVE STATEMENTS: Sinus rhythm with premature atrial complexes Nonspecific T wave abnormality Abnormal ECG Compared to ECG 09/14/2018 10:14:12 Atrial premature complex(es) now present T-wave abnormality now present Left-axis deviation no longer present Myocardial infarct finding no longer present Electronically Signed On 11-14-18 07:16:12 CDT by Mundo Andrade
[2018-11-25] MEDS: NA CHLORIDE 0.9% 1,000 ML ONE (09:00)
[2018-11-25] MEDS ORDERED: GENTAMICIN 80 MG/100 ML BAG 80 MG/100 ML BAG IV ONE (10:19)
[2018-11-25] MEDS ORDERED: PROPOFOL 200 MG/20 ML VIAL IV ONE (10:21)
[2018-11-25] MEDS ORDERED: MIDAZOLAM HCL 2 MG/2 ML INJ ONE (10:22)
[2018-11-25] MEDS ORDERED: FENTANYL CITR 100 MCG/2 ML ONE ×2 (10:22→11:03)
[2018-11-25] MEDS ORDERED: LIDOCAINE 1% MPF 5 ML VIAL ONE (10:22)
[2018-11-25] MEDS ORDERED: ROCURONIUM 50 MG/5 ML VIAL IV ONE (10:24)
[2018-11-25] MEDS ORDERED: ONDANSETRON 4 MG/2 ML VIAL ONE (11:18)
[2018-11-25] MEDS ORDERED: NA CHLORIDE 0.9% 1,000 ML ONE (11:47)
== END 2018-11-25 13:25 | disposition home or self-care (01) ==
LOC: OR 09:56
PROVIDERS: ATTEND Urology
PROC: 0VB08ZZ Excision of Prostate, Via Natural or Artificial Opening Endoscopic (ICD-10-PCS; principal; 2018-11-25 11:30)
DX: N40.1 Benign prostatic hyperplasia with lower urinary tract symptoms (principal); R39.12 Poor urinary stream; N52.9 Male erectile dysfunction, unspecified; N39.0 Urinary tract infection, site not specified; E11.9 Type 2 diabetes mellitus without complications; I10 Essential (primary) hypertension; Z79.82 Long term (current) use of aspirin; Z79.84 Long term (current) use of oral hypoglycemic drugs; Z79.899 Other long term (current) drug therapy
CPT/HCPCS: 36415; 71046; 80048; 81003; 82962; 85025; 85610; 85730; 87077; 87086; 87088; 87186; 88305; 93005; G0103; J1580; J2250; J2405; J2704; J3010; J7030

== ENCOUNTER 2020-11-27 12:54 | Inpatient (IN) | payer OTHER ==
[2020-11-27 13:33] LABS: Absolute Lymphocytes (CBC) 1.7 K/uL (0.7-4.9); Basophils % 1.2 % (0-1.3); Hematocrit 45.9 % (39.6-49.0); Lymphocytes % 23.9 % (15.3-44.8); MPV 9.2 fL (7.6-11.3); RBC Red Blood Cell Count 4.99 M/uL (4.33-5.43)
[2020-11-27] MEDS ORDERED: NITROGLYCERIN 0.4 MG/TAB SL ONE (13:49)
[2020-11-27] MEDS ORDERED: METOPROLOL TARTRATE 5 MG/5 ML INJ IV ONE (13:49)
[2020-11-27] MEDS ORDERED: ASPIRIN 81 MG CHEWABLE TABLET ONE (13:49)
[2020-11-27 15:05] LABS: ALT/SGPT 47 U/L (12-78); AST/SGOT 28 U/L (15-37); Albumin 3.9 g/dL (3.4-5.0); Alkaline Phosphatase 60 U/L (45-117); BUN Blood Urea Nitrogen 18 mg/dL (7-18); Bicarbonate 24 mmol/L (21-32); Bilirubin Direct < 0.1 mg/dL (0-0.2); Bilirubin Total 0.4 mg/dL (0.2-1.0); Glucose Level 166 mg/dL (74-106); Magnesium 2.4 mg/dL (1.8-2.4); NT PRO-BNP 738 pg/mL (<125); Protein, Total 7.4 g/dL (6.4-8.2); Sodium Level 139 mmol/L (136-145)
--- NOTE | 2020-11-27 15:06 | RAD REPORT ---
EXAM DESCRIPTION: RAD - Chest Single View - 11/27/2020 1:25 pm CLINICAL HISTORY: CHEST PAIN COMPARISON: Two view chest November 2018 TECHNIQUE: AP portable chest image was obtained 11/27/2020 1:25 pm . FINDINGS: Lung volumes are low. No focal lung parenchymal process suspected. Heart and vasculature a re normal. No measurable pleural effusion and no pneumothorax. No acute bony abnormality seen. No acu te aortic findings suspected. IMPRESSION: No acute cardiopulmonary process.
[2020-11-27 15:09] LABS: Troponin (Emerg Dept Use Only) 0.91 ng/mL (0.0-0.045)
[2020-11-27] MEDS ORDERED: ENOXAPARIN 100 MG/ML SYR SQ ONE (15:47)
--- NOTE | 2020-11-27 15:53 | EDPHYS ---
Physician Documentation [facility] Name: Tejas Kulkarni Age: 75 yrs Sex: Male : 1945 Arrival Date: 11/27/2020 Time: 12:55 Bed 6 Private MD: ED Physician González Garcia HPI: 11/27 14:46 This 75 yrs old Male presents to ER via Wheelchair with complaints of High ma2 Blood Pressure, Chest Pain. 14:46 Onset: The symptoms/episode began/occurred gradually, 1 week(s) ago. Associated signs ma2 and symptoms: Pertinent negatives: dyspnea, headache, nausea, visual changes. Severity of symptoms: At its worst the blood pressure was moderate, in the emergency department the blood pressure is unchanged. The patient has not experienced similar symptoms in the past. Historical: - Allergies: 13:06 Iodine; jd3 13:06 shrimp; jd3 - Home Meds: 13:06 losartan oral oral [Active]; jd3 - PMHx: 13:06 Diabetes - NIDDM; Hypertension; jd3 - PSHx: 13:06 "laser surgery on growth"; jd3 - Immunization history:: Adult Immunizations up to date. - Social history:: Smoking status: Patient/guardian denies using tobacco, but has a distant history of tobacco abuse, Patient/guardian denies using alcohol, street drugs, The patient lives with family. - Family history:: not pertinent. ROS: 14:46 Constitutional: Negative for fever, chills, and weight loss. ma2 14:46 All other systems are negative. Exam: 14:46 Constitutional: This is a well developed, well nourished patient who is awake, alert, ma2 and in no acute distress. Head/Face: Normocephalic, atraumatic. Eyes: Pupils equal round and reactive to light, extra-ocular motions intact. Lids and lashes normal. Conjunctiva and sclera are non-icteric and not injected. Cornea within normal limits. Periorbital areas with no swelling, redness, or edema. ENT: Nares patent. No nasal discharge, no septal abnormalities noted. Tympanic membranes are normal and external auditory canals are clear. Oropharynx with no redness, swelling, or masses, exudates, or evidence of obstruction, uvula midline. Mucous membranes moist. Neck: Trachea midline, no thyromegaly or masses palpated, and no cervical lymphadenopathy. Supple, full range of motion without nuchal rigidity, or vertebral point tenderness. No Meningismus. Chest/axilla: Normal chest wall appearance and motion. Nontender with no deformity. No lesions are appreciated. Cardiovascular: Regular rate and rhythm with a normal S1 and S2. No gallops, murmurs, or rubs. Normal PMI, no JVD. No pulse deficits. Respiratory: Lungs have equal breath sounds bilaterally, clear to auscultation and percussion. No rales, rhonchi or wheezes noted. No increased work of breathing, no retractions or nasal flaring. Abdomen/GI: Soft, non-tender, with normal bowel sounds. No distension or tympany. No guarding or rebound. No evidence of tenderness throughout. Back: No spinal tenderness. No costovertebral tenderness. Full range of motion. Skin: Warm, dry with normal turgor. Normal color with no rashes, no lesions, and no evidence of cellulitis. MS/ Extremity: Pulses equal, no cyanosis. Neurovascular intact. Full, normal range of motion. Neuro: Awake and alert, GCS 15, oriented to person, place, time, and situation. Cranial nerves II-XII grossly intact. Motor strength 5/5 in all extremities. Sensory grossly intact. Cerebellar exam normal. Normal gait. Vital Signs: 13:03 BP 214 / 103; Pulse Ox 100% ; tr6 13:06 Pulse 79; Resp 19 S; Temp 97.9(O); Pulse Ox 99% on R/A; Weight 87.09 kg (R); Height 5 jd3 ft. 8 in. (172.72 cm) (R); Pain 6/10; 13:40 BP 112 / 94; Resp 18; Pulse Ox 94% on R/A; tr6 14:00 BP 139 / 82; Pulse 66; Resp 18; Pulse Ox 100% on R/A; tr6 15:30 BP 151 / 55; Pulse 71; Resp 15; Pulse Ox 97% on R/A; hb 17:00 BP 122 / 69; Pulse 67; Resp 15; Pulse Ox 99% on R/A; hb 18:14 BP 146 / 81; Pulse 80; Resp 14; Pulse Ox 94% ; hb 19:45 BP 139 / 80; Pulse 63; Resp 18; Pulse Ox 97% ; jb4 13:06 Body Mass Index 29.19 (87.09 kg, 172.72 cm) jd3 MDM: 13:01 Patient medically screened. vt2 14:46 Differential diagnosis: chest pain. [facility] 15:52 Data reviewed: vital signs, nurses notes. Counseling: I had a detailed discussion with [facility] the patient and/or guardian regarding: the historical points, exam findings, and any diagnostic results supporting the discharge/admit diagnosis, the presence of at least one elevated blood pressure reading (>120/80) during this emergency department visit, the need for further work-up and treatment in the hospital. Response to treatment: the patient's symptoms have markedly improved after treatment. 16:15 ED course: discussed w dr. enriquez, he plans on performing cardiac cath tomorrow. . [facility] 11/27 13:02 Order name: Basic Metabolic Panel; Complete Time: 15:17 [facility] 11/27 13:02 Order name: CBC with Diff; Complete Time: 15:17 [facility] 11/27 13:02 Order name: LFT's; Complete Time: 15:17 [facility] 11/27 13:02 Order name: Magnesium; Complete Time: 15:17 [facility] 11/27 13:02 Order name: NT PRO-BNP; Complete Time: 15:17 [facility] 11/27 13:02 Order name: PT-INR; Complete Time: 15:17 [facility] 11/27 13:02 Order name: Troponin (emerg Dept Use Only); Complete Time: 15:17 [facility] 11/27 17:15 Order name: Comprehensive Metabolic Panel [facility] 11/27 17:15 Order name: Comprehensive Metabolic Panel [facility] 11/27 17:15 Order name: Lipid Profile [facility] 11/27 17:15 Order name: Lipid Profile [facility] 11/27 17:15 Order name: Magnesium [facility] 11/27 17:15 Order name: Magnesium [facility] 11/27 17:15 Order name: NT PRO-BNP [facility] 11/27 17:15 Order name: NT PRO-BNP [facility] 11/27 17:15 Order name: Phosphorus [facility] 11/27 17:15 Order name: Phosphorus [facility] 11/27 17:15 Order name: Protime (+INR) [facility] 11/27 17:15 Order name: Protime (+INR) [facility] 11/27 17:15 Order name: Troponin I [facility] 11/27 17:15 Order name: Troponin I EDMS 11/27 17:15 Order name: Troponin I EDMS 11/27 17:16 Order name: CBC with Automated Diff [facility] 11/27 17:16 Order name: CBC with Automated Diff [facility] 11/27 17:16 Order name: PTT, Activated Partial Thromb [facility] 11/27 17:16 Order name: PTT, Activated Partial Thromb EDMS 11/27 17:16 Order name: PTT, Activated Partial Thromb EDMS 11/27 17:16 Order name: PTT, Activated Partial Thromb EDMS 11/27 17:16 Order name: PTT, Activated Partial Thromb ED[facility] 11/27 13:02 Order name: XRAY Chest (1 view); Complete Time: 15:17 ma2 11/27 13:02 Order name: EKG; Complete Time: 13:03 ma2 11/27 13:02 Order name: Cardiac monitoring; Complete Time: 13:02 ma2 11/27 13:02 Order name: EKG - Nurse/Tech; Complete Time: 13:18 ma2 11/27 13:02 Order name: IV Saline Lock; Complete Time: 13:18 ma2 11/27 13:02 Order name: Labs collected and sent; Complete Time: 13:18 ma2 11/27 13:02 Order name: O2 Per Protocol; Complete Time: 13:02 ma2 11/27 13:02 Order name: O2 Sat Monitoring; Complete Time: 13:02 ma2 11/27 13:42 Order name: Labs - recollect needed: recollect green and lav top; Complete Time: 14:28 bd 11/27 16:45 Order name: Diet Ada 1800 Daquan: No chicken please; Complete Time: 16:45 ss 11/27 17:16 Order name: CONS Physician Consult EDMS 11/27 17:16 Order name: Heart Healthy EDMS 11/27 17:16 Order name: Echo with Doppler EDMS 11/27 17:16 Order name: EKG Electrocardiogram EDMS 11/27 17:16 Order name: EKG Electrocardiogram EDMS 11/27 17:16 Order name: EKG Electrocardiogram EDMS 11/27 17:16 Order name: EKG Electrocardiogram EDMS 11/27 17:16 Order name: PTT, Activated Partial Thromb EDMS 11/27 18:13 Order name: SARS-COV-2 RT PCR EDMS Administered Medications: 13:39 Drug: Metoprolol 5 mg Route: IVP; Site: left wrist; tr6 13:39 Drug: Aspirin Chewable Tablet 324 mg Route: PO; tr6 13:40 Drug: Nitroglycerin 0.4 mg Route: Sublingual; tr6 15:18 Drug: Lovenox (enoxaparin) 90 mg Route: Sub-Q; Site: abdomen; tr6 Disposition: 11/27/20 15:53 Hospitalization ordered by González Caro for Inpatient Admission. Preliminary diagnosis is Non-ST elevation (NSTEMI) myocardial infarction. - Bed requested for Telemetry/MedSurg (Inpatient). - Status is Inpatient Admission. jb4 - Condition is Stable. - Problem is new. - Symptoms are unchanged. Signatures: Dispatcher [employer] EDMS Tonya Hayes Diana, RN RN dw [place] Finley RN RN jb4 Garret Carpenter RN RN jd3 Alzahri, Mohammad, MD MD ma2 Ramnanan, Tiffany, RN RN tr6 Corrections: (The following items were deleted from the chart) 17:18 16:49 CORONAVIRUS+MR.LAB.BRZ ordered. EDMS EDMS 18:40 15:53 Hospitalization Ordered by González Caro MD for Inpatient Admission. Preliminary dw diagnosis is Non-ST elevation (NSTEMI) myocardial infarction. Bed requested for Telemetry/MedSurg (Inpatient). Status is Inpatient Admission. Condition is Stable. Problem is new. Symptoms are unchanged. ma2 20:07 18:40 11/27/2020 15:53 Hospitalization Ordered by González Caro MD for Inpatient jb4 Admission. Preliminary diagnosis is Non-ST elevation (NSTEMI) myocardial infarction. Bed requested for Telemetry/MedSurg (Inpatient). Status is Inpatient Admission. Condition is Stable. Problem is new. Symptoms are unchanged. dw
--- NOTE | 2020-11-27 15:53 | ER ---
Nurse's Notes [facility] Name: Tejas Kulkarni Age: 75 yrs Sex: Male : 1945 Arrival Date: 11/27/2020 Time: 12:55 Bed 6 Private MD: Diagnosis: Non-ST elevation (NSTEMI) myocardial infarction Presentation: 11/27 13:04 Chief complaint: Patient states: "my chest feels like it is on fire. hurting a good jd3 deal and my blood pressure is really high which is causing me to be a little dizzy.". Coronavirus screen: At this time, the client does not indicate any symptoms associated with coronavirus-19. Ebola Screen: Patient negative for fever greater than or equal to 101.5 degrees Fahrenheit, and additional compatible Ebola Virus Disease symptoms. Initial Sepsis Screen: Does the patient meet any 2 criteria? No. Patient's initial sepsis screen is negative. Does the patient have a suspected source of infection? No. Patient's initial sepsis screen is negative. Risk Assessment: Do you want to hurt yourself or someone else? Patient reports no desire to harm self or others. Onset of symptoms was November 23, 2020. 13:04 Method Of Arrival: Wheelchair jd3 13:04 Acuity: REAGAN 3 jd3 Historical: - Allergies: 13:06 Iodine; jd3 13:06 shrimp; jd3 - Home Meds: 13:06 losartan oral oral [Active]; jd3 - PMHx: 13:06 Diabetes - NIDDM; Hypertension; jd3 - PSHx: 13:06 "laser surgery on growth"; jd3 - Immunization history:: Adult Immunizations up to date. - Social history:: Smoking status: Patient/guardian denies using tobacco, but has a distant history of tobacco abuse, Patient/guardian denies using alcohol, street drugs, The patient lives with family. - Family history:: not pertinent. Screenin:03 Abuse screen: Denies threats or abuse. Denies injuries from another. Nutritional tr6 screening: No deficits noted. Tuberculosis screening: No symptoms or risk factors identified. Fall Risk None identified. Assessment: 13:40 Reassessment: Patient and/or family updated on plan of care and expected duration. Pain tr6 level reassessed. pt states that his pain is basically gone Patient denies pain at this time. Patient states feeling better. 14:16 Reassessment: pt OOB to bathroom independently. tr6 15:52 Reassessment: Patient appears in no apparent distress at this time. Patient and/or ss family updated on plan of care and expected duration. Pain level reassessed. Patient is alert, oriented x 3, equal unlabored respirations, skin warm/dry/pink. 16:55 Reassessment: Patient appears in no apparent distress at this time. Patient and/or hb family updated on plan of care and expected duration. Pain level reassessed. Patient is alert, oriented x 3, equal unlabored respirations, skin warm/dry/pink. 18:14 Reassessment: Patient appears in no apparent distress at this time. No changes from hb previously documented assessment. Patient and/or family updated on plan of care and expected duration. Pain level reassessed. 19:15 Reassessment: Patient appears in no apparent distress at this time. Patient and/or jb4 family updated on plan of care and expected duration. Pain level reassessed. Patient is alert, oriented x 3, equal unlabored respirations, skin warm/dry/pink. Vital Signs: 13:03 BP 214 / 103; Pulse Ox 100% ; tr6 13:06 Pulse 79; Resp 19 S; Temp 97.9(O); Pulse Ox 99% on R/A; Weight 87.09 kg (R); Height 5 jd3 ft. 8 in. (172.72 cm) (R); Pain 6/10; 13:40 BP 112 / 94; Resp 18; Pulse Ox 94% on R/A; tr6 14:00 BP 139 / 82; Pulse 66; Resp 18; Pulse Ox 100% on R/A; tr6 15:30 BP 151 / 55; Pulse 71; Resp 15; Pulse Ox 97% on R/A; hb 17:00 BP 122 / 69; Pulse 67; Resp 15; Pulse Ox 99% on R/A; hb 18:14 BP 146 / 81; Pulse 80; Resp 14; Pulse Ox 94% ; hb 19:45 BP 139 / 80; Pulse 63; Resp 18; Pulse Ox 97% ; jb4 13:06 Body Mass Index 29.19 (87.09 kg, 172.72 cm) jd3 ED Course: 12:55 Patient arrived in ED. ds1 13:01 González Garcia MD is Attending Physician. ma2 13:02 Georgina Magallon RN is Primary Nurse. tr6 13:03 Awaiting ED provider evaluation. tr6 13:03 Patient has correct armband on for positive identification. Bed in low position. Call tr6 light in reach. Side rails up X2. equipment monitor phototypesetting on. Pulse ox on. NIBP on. Door closed. Noise minimized. Visitors limited. Lights dimmed. Warm blanket given. Diet: Patient is NPO. 13:03 No provider procedures requiring assistance completed. Patient maintains SpO2 tr6 saturation greater than 95% on room air. 13:05 Triage completed. jd3 13:07 Arm band placed on. jd3 13:18 Inserted saline lock: 20 gauge in left wrist, using aseptic technique. Blood collected. tr6 13:23 XRAY Chest (1 view) In Process Unspecified. EDMS 15:53 González Caro MD is Hospitalizing Provider. ma2 17:35 Diet: Patient given a diabetic meal tray. bd 19:19 Primary Nurse role handed off by Georgina Magallon, LILA mw2 19:45 Patient admitted, IV remains in place. jb4 Administered Medications: 13:39 Drug: Metoprolol 5 mg Route: IVP; Site: left wrist; tr6 13:39 Drug: Aspirin Chewable Tablet 324 mg Route: PO; tr6 13:40 Drug: Nitroglycerin 0.4 mg Route: Sublingual; tr6 15:18 Drug: Lovenox (enoxaparin) 90 mg Route: Sub-Q; Site: abdomen; tr6 Outcome: 15:53 Decision to Hospitalize by Provider. ma2 19:45 Admitted to Tele accompanied by tech, via wheelchair, room 231, with chart, Report jb4 called to LILA Mooney 19:45 Condition: stable 19:45 Discharge instructions given to patient, Instructed on the need for admit, Demonstrated understanding of instructions. 20:07 Patient left the ED. jb4 Signatures: Dispatcher [employer] EDDE Tonya Hayes Demi ds1 Kristel Eugene RN RN ss Baxter, Heather, RN RN hb Bryson, James, RN RN jb4 Garret Carpenter RN RN jd3 Alzahri, Mohammad, MD MD ma2 [place] 2 Georgina Magallon, LILA RN tr6
[2020-11-27] MEDS ORDERED: ASPIRIN 325 MG TAB PO ONE (17:07)
[2020-11-27] MEDS ORDERED: ALPRAZOLAM 0.25 MG TABLET PO PRN (17:07)
[2020-11-27] MEDS ORDERED: ONDANSETRON 4 MG/2 ML VIAL IV PRN (17:07)
[2020-11-27] MEDS ORDERED: MORPHINE 4 MG/ML SYR IV PRN (17:07)
[2020-11-27] MEDS ORDERED: HEPARIN/D5W 25,000 UNIT/500 ML BAG IV SCH (18:00)
[2020-11-27 20:11] VITALS: BMI 29.6
[2020-11-27] MEDS ORDERED: ATORVASTATIN 20 MG TAB PO SCH (21:00)
[2020-11-27] MEDS: METOPROLOL TAR 50 MG TAB PO SCH (21:05)
[2020-11-27] MEDS ORDERED: PNEUMOCOCCAL VACCINE 0.5 ML IMVAC ONE (21:17)
--- NOTE | 2020-11-27 23:13 | P.HP ---
Certification for Inpatient Patient admitted to: Inpatient With expected LOS: >2 Midnights Patient will require the following post-hospital care: None Practitioner: I am a practitioner with admitting privileges, knowledge of patient current condition, hospital course, and medical plan of care. Services: Services provided to patient in accordance with Admission requirements found in Title 42 Section 412.3 of the Code of Federal Regulations Patient History Date of Service: 11/27/20 Reason for admission: Acute coronary syndrome History of Present Illness: Patient is a 75-year-old gentleman who came to the hospital with chest discomfort. Patient states that his blood pressures been poorly controlled for the last week. He has a blood pressure cuff and he normally takes his blood pressure regularly. This past week it was 200/100. It was not improving and he started having some chest discomfort. Decision was made to come into the emergency room for further evaluation. In the ER patient was given nitroglycerin and chest pain improved. Patient was found to have elevated troponin with no significant EKG changes. Patient has multiple risk factors including hypertension and diabetes. Patient also with dyslipidemia. Patient smoked over 60 years ago and denies a family history. Patient will be admitted for an acute coronary syndrome/non ST-elevation myocardial infarction. Will go ahead and start patient on anti coagulation, anti-platelet therapy, statin therapy, and strict blood pressure and heart rate control. Cardiology to perfo cardiac catheterization in the morning. Allergies iodine Allergy (Verified 11/27/20 20:13) Rash shrimp Allergy (Verified 11/27/20 20:13) Hives/Rash - Past Medical/Surgical History Has patient received pneumonia vaccine in the past: No Diabetic: Yes -: diabetes -: hypertension -: Hyperlipidemia -: urethra tumor removal - Family History Father Medical History: Lung disease, Cancer - Social History Smoking Status: Former smoker Alcohol use: Yes Place of Residence: Home Review of Systems 10-point ROS is otherwise unremarkable Physical Examination - Vital Signs Temperature: 97.5 F Blood Pressure: 143/76 Pulse: 71 Respirations: 16 Pulse Ox (%): 95 - Physical Exam General: Alert, In no apparent distress, Oriented x3 HEENT: Atraumatic, PERRLA, Mucous membr. moist/pink, EOMI, Sclerae nonicteric Neck: Supple, 2+ carotid pulse no bruit, No LAD, Without JVD or thyroid abnormality Respiratory: Diminished Cardiovascular: Regular rate/rhythm, Normal S1 S2, Systolic murmur Gastrointestinal: Normal bowel sounds, Soft and benign, Non-distended, No tenderness Musculoskeletal: No clubbing, No swelling, No tenderness Integumentary: No rashes Neurological: Normal gait, Normal speech, Normal strength at 5/5 x4 extr, Normal tone, Sensation intact, Cranial nerves 3-12 intact, Normal affect Lymphatics: No axilla or inguinal lymphadenopathy - Studies Laboratory Data (last 24 hrs) 11/27/20 14:26: PT 11.5, INR 1.00 11/27/20 14:26: Sodium 139, Potassium 4.0, BUN 18, Creatinine 1.08, Glucose 166 H, Magnesium 2.4, Total Bilirubin 0.4, AST 28, ALT 47, Alkaline Phosphatase 60 11/27/20 13:15: WBC 6.90, Hgb 15.6, Hct 45.9, Plt Count 229 Assessment & Plan - Problems (Diagnosis) (1) Acute coronary syndrome with high troponin Current Visit: Yes Status: Acute (2) Hyperlipidemia Current Visit: Yes Status: Acute (3) Diabetes mellitus Current Visit: No Status: Chronic (4) HTN (hypertension) Current Visit: No Status: Chronic Qualifiers: - Plan 1. Continue with serial troponins and EKG 2. Appreciate Cardiology consultation; patient have cardiac catheterization in a.m. 3. Echocardiogram and proceed with cardiac catheterization in the morning 4. Anti-platelet therapy, anticoagulation, beta-dane, statin, and O2 as needed 5. IV morphine for pain 6. Nitro p.r.n. 7. Strict blood pressure and blood sugar control 8. GI and DVT prophylaxis Discharge Plan: Home Plan to discharge in: Greater than 2 days - Advance Directives Does patient have a Living Will: No Does patient have a Durable POA for Healthcare: No - Code Status/Comfort Care Code Status Assessed: Yes Code Status: Full Code Critical Care: Yes Time Spent Managing PTS Care (In Minutes): 45
[2020-11-28 05:41] LABS: Absolute Lymphocytes (CBC) 1.6 K/uL (0.7-4.9); Basophils % 1.3 % (0-1.3); Hematocrit 44.6 % (39.6-49.0); Lymphocytes % 28.4 % (15.3-44.8); MPV 9.4 fL (7.6-11.3)
--- NOTE | 2020-11-28 05:59 | P.PN ---
Subjective Date of Service: 11/28/20 Chief Complaint: Acute coronary syndrome Subjective: Improving, Doing well Physical Examination - Vital Signs Temperature: 97.8 F Blood Pressure: 144/64 Pulse: 59 Respirations: 19 Pulse Ox (%): 97 - Studies Laboratory Data (last 24 hrs) 11/27/20 14:26: PT 11.5, INR 1.00 11/27/20 14:26: Sodium 139, Potassium 4.0, BUN 18, Creatinine 1.08, Glucose 166 H, Magnesium 2.4, Total Bilirubin 0.4, AST 28, ALT 47, Alkaline Phosphatase 60 11/27/20 13:15: WBC 6.90, Hgb 15.6, Hct 45.9, Plt Count 229 Assessment & Plan Discharge Plan: Home Plan to discharge in: 24 Hours Physician Review Additional Text: Physical exam General: Patient alert, cooperative. Oriented x3 Heart: Regular rate and rhythm Lungs: Clear to auscultation GI: Soft nontender nondistended Musculoskeletal: No pain noted. Good range of motion Neurological: Normal gait, normal speech. Impression: Chest pain secondary to NSTEMI suspect CAD Hypertension Diabetes mellitus type 2 Hyperlipidemia Plan: Chest pain secondary to NSTEMI suspect CAD: Continue with aspirin, Plavix, metoprolol and Lipitor. Spoke with cardiology. Heart catheterization to be performed today. Await findings. Echocardiogram also ordered. Hypertension: Continue blood pressure medicationmetoprolol. Will monitor and adjust appropriately. Diabetes mellitus type 2: Continue Accu-Cheks and sliding scale. Will obtain A1c. Hyperlipidemia: Continue statin medicationLipitor. LDL 82 DVT prophylaxis: Heparin CODE STATUS: Full code Advanced care [id number] minutes: Patient desires to go home at discharge Time Spent Managing Pts Care (In Minutes): 55
[2020-11-28] MEDS: METOPROLOL TAR 50 MG TAB PO SCH (06:06)
[2020-11-28 06:09] LABS: Protime INR 0.97
[2020-11-28 06:18] LABS: Albumin 3.6 g/dL (3.4-5.0); Bilirubin Total 0.5 mg/dL (0.2-1.0); Magnesium 2.4 mg/dL (1.8-2.4); Phosphorus 4.4 mg/dL (2.5-4.9); Potassium 4.1 mmol/L (3.5-5.1); Protein, Total 6.8 g/dL (6.4-8.2); Troponin I 1.92 ng/mL (0.0-0.045)
[2020-11-28] MEDS ORDERED: predniSONE 20 MG TAB PO ONE (08:17)
[2020-11-28] MEDS ORDERED: ASPIRIN EC 81 MG TAB PO SCH (09:00)
[2020-11-28] MEDS ORDERED: CLOPIDOGREL 75 MG TABLET PO SCH (09:00)
[2020-11-28 10:24] VITALS: O2SAT 68
--- NOTE | 2020-11-28 11:00 | CON ---
Date of Consultation: 11/28/[address] Barker on 11/27/2020. The patient seen on 11/28/2020. Reason For Consultation: Non-ST elevation myocardial infarction. History Of Present Illness: Mr. Kulkarni is a 75-year-old. No previous cardiac history. He has a hi story of diabetes and hypertension, came in with substernal chest pain without exertion and had a tro ponin of 1.92. EKG is nonspecific. The patient is allergic to iodine. No PND, orthopnea, pedal sandra ma, palpitation, or syncope. Denied any nausea, vomiting, diaphoresis. Denied any fever or chills. Was very hypertensive when he came. Past Medical History: As stated above. Allergies: HE IS ALLERGIC TO IODINE. Review of Systems: Negative. Social History: Negative. Family History: Positive for heart disease. Medications: At home include losartan. Physical Examination: Vital Signs: Stable, afebrile. HEENT: Negative. Neck: Supple. No bruit. Chest: Clear to auscultation and percussion. Cardiac: Revealed a regular rhythm and rate. No murmurs, gallops, or rubs. Abdomen: Benign. Extremities: Revealed no clubbing, cyanosis, or edema. Diagnostic Data: As stated earlier. Impression And Plan: 1.Non-ST elevation myocardial infarction. 2.Hypertension. 3.Diabetes. 4.Allergy to iodine. The patient has already received aspirin, Plavix, heparin, statin, beta-dane, losartan. We have a n echocardiogram pending. We will plan for heart catheterization today to define his coronary anatom y. He understands the risk and the benefits of the procedure and he agrees to proceed. We will pre treat him with prednisone and steroids, IV Solu-Medrol before the procedure. TIP/MATHEW Voice ID: [id number] Report ID: [id number]
[2020-11-28 12:25] VITALS: BP 133/84; TEMP 98.1
[2020-11-28] MEDS ORDERED: HEPA 1000U/500MLS 2,000 UNIT/1,000 ML BAG IV ONE (12:57)
[2020-11-28] MEDS ORDERED: NA CHLORIDE 0.9% 500 ML ONE (13:40)
[2020-11-28] MEDS ORDERED: MIDAZOLAM HCL 2 MG/2 ML INJ ONE (14:22)
[2020-11-28] MEDS ORDERED: LIDOCAINE 1% 20 ML MDV ONE (14:22)
[2020-11-28] MEDS ORDERED: FENTANYL CITR 100 MCG/2 ML ONE (14:23)
[2020-11-28] MEDS ORDERED: ATROPINE SULF 1 MG/10 ML SYR IV ONE (14:23)
[2020-11-28] MEDS ORDERED: VERAPAMIL HCL 10 MG/4 ML VIAL IV ONE (14:23)
[2020-11-28] MEDS ORDERED: HEPARIN 5000 UNIT/ML 1 ML VIAL ONE (14:24)
[2020-11-28] MEDS ORDERED: METHYLPREDNISOLONE 125 MG INJ ONE (14:47)
[2020-11-28] MEDS ORDERED: DIPHENHYDRAMINE 50 MG/ML VIAL ONE (14:47)
[2020-11-28] MEDS ORDERED: CLOPIDOGREL 75 MG TABLET ONE (14:57)
--- NOTE | 2020-11-28 16:07 | OP ---
Date of Procedure: 11/28/2020 Surgeon: SIRENA HO Procedures Performed: 1.Selective coronary angiogram. 2.Left heart catheterization. Access: Right radial artery 6-[place] closed with TR band. Indication: Non-ST elevation myocardial infarction. Complications: None. Bleeding: Less than 5 mL. Description Of Procedure: After risks, benefits, and alternatives were explained, the patient agreed to the procedure and signed informed consent. The patient was brought into the cardiac catheterizat ion laboratory, prepped and draped in usual sterile fashion. Then, we accessed radial artery using p [employer] micropuncture kit, placed a 6-[place] Slender sheath and then I took a 5-[place] Excel 4.0 cat heter into the aortic root, engaged the left main and right coronary artery, and took standard views. Catheter was advanced across the aortic valve into the LV, recorded LVEDP, and pullback recorded. No gradient. Then, catheter and sheath were removed and TR band was placed with good hemostasis. Findings: 1.Ostial to proximal left main with 70% stenosis, significant drop in pressure upon engagement with the diagnostic catheter along the left main with significant ostial proximal disease. 2.LAD; moderate-sized vessel with luminal irregularities throughout and after diagonal 1 branch has a focal stenosis 60% and after diagonal 2 branch 60% in-stent focal stenosis. 3.Left circumflex has a proximal 90% to 95% stenosis, which is likely the culprit of the [place]; however , there is ANDREA-3 flow and then the OM branch has a distal 60% stenosis. 4.RCA; proximal to mid total or subtotal occlusion and this is a vessel fills distally likely from O 2 collaterals and collaterals from the left side. 5.LVEDP of 5 mmHg. Conclusion: Severe multivessel coronary artery disease including left main disease. Plan And Recommendations: Discussed with CT Surgery and we will transfer to the [facility] for c oronary artery bypass grafting. SR/JERMAINEL Voice ID: [id number] Report ID: [id number]
--- NOTE | 2020-11-28 16:20 | P.DS ---
Admission Date: 11/27/20 Discharge Date: 11/28/20 Primary Care Provider: unknown Disposition: TRANSFER TO [facility] Discharge Condition: GOOD Reason for Admission: Acute coronary syndrome Consultations: Cardiology-Dr. Ho Procedures: COVID: Negative Heart Cath: Date of Procedure: 11/28/2020 Surgeon: SIRENA HO Procedures Performed: 1. Selective coronary angiogram. 2. Left heart catheterization. Access: Right radial artery 6-[place] closed with TR band. Indication: Non-ST elevation myocardial infarction. Complications: None. Bleeding: Less than 5 mL. Findings: 1. Ostial to proximal left main with 70% stenosis, significant drop in pressure upon engagement with the diagnostic catheter along the left main with s ignificant ostial proximal disease. 2. LAD; moderate-sized vessel with luminal irregularities throughout and after diagonal 1 branch has a focal stenosis 60% and after diagonal 2 branch 60% in- stent focal stenosis. 3. Left circumflex has a proximal 90% to 95% stenosis, which is likely the culprit of the [place]; however, there is ANDREA-3 flow and then the OM branch has a distal 60% stenosis. 4. RCA; proximal to mid total or subtotal occlusion and this is a vessel fills distally likely from O2 collaterals and collaterals from the left side. 5. LVEDP of 5 mmHg. Conclusion: Severe multivessel coronary artery disease including left main disease. Plan And Recommendations: Discussed with CT Surgery and we will transfer to the [facility] for coronary artery bypass grafting. Medical Problem List: Chest pain secondary to NSTEMI with heart catheterization showing severe multivessel coronary artery disease including left main disease Hypertension Diabetes mellitus type 2 Hyperlipidemia Tobacco abuse Brief History of Present Illness: 75-year-old male with history of diabetes, hypertension, hy perlipidemia, and tobacco abuse. Patient presented with chest pain. Patient with elevated troponin. Patient found to have NSTEMI. Patient was admitted for treatment and further evaluation. Hospital Course: Patient with history of hypertension, diabetes mellitus type 2, hyperlipidemia, and tobacco abuse. Patient presented with chest pain secondary to NSTEMI. Heart catheterization performed showed severe multivessel coronary artery disease including left main disease. Heart catheterization showed ostial to proximal left main with 70% stenosis; LADmoderate sized vessel with luminal irregularities throughout and after diagonal 1 branch had a focal stenosis of 60% and after diagonal 2 branch 60% in-stent focal stenosis; left circumflex had proximal 90% to 95% stenosis; RCAproximal to mid total or subtotal occlusion with distal collaterals. Cardiology recommended transfer for CABG. Cardiology spoke to CT surgery. Patient to be transferred for further evaluation and treatment. Vital Signs/Physical Exam: Temp Pulse Resp BP Pulse Ox 98.1 F 62 17 133/84 98 11/28/20 12:00 11/28/20 12:00 11/28/20 12:00 11/28/20 12:00 11/28/20 12:00 General: Alert HEENT: Atraumatic Neck: Supple Respiratory: Clear to auscultation bilaterally, Normal air movement Cardiovascular: Normal pulses, Regular rate/rhythm Gastrointestinal: Normal bowel sounds, No tenderness, No masses, No rebound, No guarding Musculoskeletal: No erythema, No tenderness, No warmth Integumentary: No tenderness/swelling Neurological: Normal speech, Normal strength at 5/5 x4 extr, Normal tone, Normal affect Laboratory Data at Discharge: WBC 5.70 K/uL (4.3-10.9) D 11/28/20 05:07 Hgb 14.9 g/dL (13.6-17.9) 11/28/20 05:07 Hct 44.6 % (39.6-49.0) 11/28/20 05:07 Plt Count 197 K/uL (152-406) 11/28/20 05:07 PT 11.2 SECONDS (9.5-12.5) 11/28/20 05:07 INR 0.97 11/28/20 05:07 APTT 29.8 SECONDS (24.3-36.9) 11/28/20 12:35 Sodium 138 mmol/L (136-145) 11/28/20 05:07 Potassium 4.1 mmol/L (3.5-5.1) 11/28/20 05:07 BUN 17 mg/dL (7-18) 11/28/20 05:07 Creatinine 0.88 mg/dL (0.55-1.3) 11/28/20 05:07 Glucose 157 mg/dL (74-106) H 11/28/20 05:07 Phosphorus 4.4 mg/dL (2.5-4.9) 11/28/20 05:07 Magnesium 2.4 mg/dL (1.8-2.4) 11/28/20 05:07 Total Bilirubin 0.5 mg/dL (0.2-1.0) 11/28/20 05:07 AST 38 U/L (15-37) H 11/28/20 05:07 ALT 47 U/L (12-78) 11/28/20 05:07 Alkaline Phosphatase 52 U/L (45-117) 11/28/20 05:07 Troponin I 1.92 ng/mL (0.0-0.045) H* 11/28/20 05:07 Triglycerides 331 mg/dL (<150) H 11/28/20 05:07 Cholesterol 183 mg/dL (<200) 11/28/20 05:07 HDL Cholesterol 35 mg/dL (40-60) L 11/28/20 05:07 Cholesterol/HDL Ratio 5.23 11/28/20 05:07 Home Medications: Atorvastatin Calcium 0.5 tab PO DAILY 11/28/20 Cholecalciferol (Vitamin D3) [Vitamin D3] 2 tab PO DAILY 11/28/20 Lidocaine 4% Patch [Lidoderm 5% Patch*] 1 zoey TOP DAILY 11/28/20 Losartan Potassium 1 tab PO BID 11/28/20 Metformin HCl 1 tab PO BID 6AM 6PM 11/28/20 Terbinafine HCl [Terbinafine] 1 zoey TOP BID 11/28/20 glipiZIDE [Glipizide] 0.5 tab PO BID 11/28/20 Physician Discharge Instructions: Patient be transferred for CABG. Diet: ADA Activity: Ad patrice Followup: DIANA ORTIZ [Primary Care Provider] - Time spent managing pt's care (in minutes): 55
--- NOTE | 2020-11-29 07:59 | ECHO ---
HEIGHT: 5 ft 8 in WEIGHT: 195 lb 1.6 oz DATE OF STUDY: 11/28/[address]: González Caro MD 2-DIMENSIONAL: YES M.MODE: YES DOPPLER: YES COLOR FLOW: YES TDS: NO PORTABLE: NO DEFINITY: NO BUBBLE STUDY: NO DIAGNOSIS: ANTERIOR MYOCARDIAL INFARCTION CARDIAC HISTORY: CATHERIZATION: SURGERY: PROSTHETIC VALVE: PACEMAKER: MEASUREMENTS (cm) DIASTOLIC (NORMALS) SYSTOLIC (NORMALS) IVSd 0.9 (0.6-1.2) LA Diam 3.2 (1.9-4.0) LVEF 55-60% LVIDd 5.1 (3.5-5.7) LVIDs 2.8 (2.0-3.5) %FS 44% LVPWd 1.1 (0.6-1.2) Ao Diam 2.7 (2.0-3.7) 2 DIMENSIONAL ASSESSMENT: RIGHT ATRIUM: NORMAL LEFT ATRIUM: NORMAL RIGHT VENTRICLE: NORMAL LEFT VENTRICLE: NORMAL TRICUSPID VALVE: NORMAL MITRAL VALVE: NORMAL PULMONIC VALVE: NORMAL AORTIC VALVE: NORMAL PERICARDIAL EFFUSION: NONE AORTIC ROOT: NORMAL LEFT VENTRICULAR WALL MOTION: NORMAL. DOPPLER/COLOR FLOW: NORMAL. COMMENTS: NORMAL LEFT VENTRICULAR EJECTION FRACTION 55-60%. NORMAL WALL MOTION. TECHNOLOGIST: LAURA TALAVERA
== END 2020-11-28 17:31 | disposition short-term general hospital (02) | DRG 282 ==
LOC: ER 12:54 → ERHOLD 17:23 → 2ND 19:43
PROVIDERS: ADMIT Hospitalist; ATTEND Hospitalist
PROC: 4A023N7 Measurement of Cardiac Sampling and Pressure, Left Heart, Percutaneous Approach (ICD-10-PCS; principal; 2020-11-28)
PROC: B205YZZ Plain Radiography of Left Heart using Other Contrast (ICD-10-PCS; 2020-11-28)
PROC: B201YZZ Plain Radiography of Multiple Coronary Arteries using Other Contrast (ICD-10-PCS; 2020-11-28)
DX: I21.4 Non-ST elevation (NSTEMI) myocardial infarction (principal); I10 Essential (primary) hypertension; E11.9 Type 2 diabetes mellitus without complications; E78.5 Hyperlipidemia, unspecified; F17.210 Nicotine dependence, cigarettes, uncomplicated; I25.10 Atherosclerotic heart disease of native coronary artery without angina pectoris; Z20.822 Contact with and (suspected) exposure to COVID-19
CPT/HCPCS: 36415; 71045; 80048; 80053; 80061; 80076; 82274; 82947; 83735; 83880; 84100; 84484; 85025; 85610; 85730; 93306; 93458; 96372; 96374; 99285; C1893; J1200; J1644; J1650; J2250; J2930; J3010; J7040; J7512; U0003